=== PATIENT | female | born 1990 | race Caucasian/White ===

== ENCOUNTER 2024-04-06 11:01 | Emergency (ER) | payer BC ==
[~2024-04-06] VITALS: Ht 152.4 cm; Wt 79.4 kg
[2024-04-06 11:11] VITALS: BP 114/72; TEMP 98.3; O2SAT 98
[2024-04-06 11:12] VITALS: PULSE 101; O2SAT 99
[2024-04-06 11:47] LABS: CLARITY URINE CLOUDY (CLEAR); COLOR URINE BLOODY (YELLOW)
[2024-04-06 11:49] LABS: SPECIFIC GRAVITY URINE 1.019 (1.005-1.030)
[2024-04-06 11:50] LABS: GLUCOSE URINE NEGATIVE (NEGATIVE); KETONES URINE TRACE (NEGATIVE); LEUKOCYTE ESTERASE URINE NEGATIVE (NEGATIVE); NITRITE URINE NEGATIVE (NEGATIVE); OCCULT BLOOD URINE 3+ (NEGATIVE); PROTEIN URINE 2+ (NEGATIVE); UROBILINOGEN URINE 0.2 E.U./dL (0.2-1.0)
[2024-04-06 11:50] LABS: BASOPHILS % 0.8 % (0.0-2.0); EOSINOPHILS % 0.6 % (0.0-5.0); HEMATOCRIT. 39.6 % (36.0-48.0); HEMOGLOBIN. 12.9 g/dL (12.0-16.0); LYMPHOCYTES % 16.9 % (20.0-50.0); MEAN CORPUSCULAR HEMOGLOBIN 29.4 pg (28.0-32.0); MEAN CORPUSCULAR HGB CONC 32.6 g/dL (31.0-37.0); MEAN CORPUSCULAR VOLUME 90.3 fL (81.0-99.0); MONOCYTES % 3.1 % (2.0-8.0); NEUTROPHILS % 78.6 % (40.0-76.0); PLATELET 404 x1000/uL (130-400); RED BLOOD CELL COUNT 4.39 mill/uL (4.2-5.4); RED CELL DISTRIBUTION WIDTH 13.4 % (11.6-14.6); WHITE BLOOD COUNT 11.4 x1000/uL (4.5-11.0)
[2024-04-06 11:56] LABS: CALCIUM 9.7 mg/dL (8.7-10.4); CARBON DIOXIDE 25 mEq/L (21-32); CHLORIDE 106 mEq/L (98-107); POTASSIUM 3.8 mEq/L (3.5-5.1); SODIUM 138 mEq/L (136-145)
[2024-04-06 12:01] LABS: CREATININE 0.6 mg/dL (0.6-1.0); GLUCOSE 102 mg/dL (70-105)
[2024-04-06 12:02] LABS: UREA NITROGEN BLOOD 10 mg/dL (9-23)
[2024-04-06 12:17] LABS: TROPONIN I HIGH SENSITIVITY < 4 ng/L (3.0-34)
[2024-04-06 12:34] LABS: RBC URINE TNTC /hpf (0-2)
[2024-04-06 12:40] LABS: SQUAMOUS EPITHELIAL CELL URINE 1+ /lpf (RARE/1+)
[2024-04-06 12:41] LABS: BACTERIA URINE NONE SEEN; WBC URINE 0-2 /hpf (0-2)
[2024-04-07 09:06] LABS: UCG SCREEN NEGATIVE
== END 2024-04-06 20:38 | disposition left against medical advice (07) ==
LOC: ER 12:02
DX: R42 Dizziness and giddiness (principal); Z53.21 Procedure and treatment not carried out due to patient leaving prior to being seen by health care provider
CPT/HCPCS: 36415; 80048; 81003; 81025; 84484; 85025; 93005